=== PATIENT | male | born 1990 | race Caucasian/White ===

== ENCOUNTER 2022-10-05 11:15 | Emergency (ER) | payer SELFPAY ==
[2022-10-05 11:20] VITALS: BP 139/90; PULSE 80; RESP 18; TEMP 36.9; O2SAT 97; BMI 35.6
--- NOTE | 2022-10-05 11:27 | XR_ITS ---
The [address] [address] Patient Name: KENDALL LEWIS MRN: [id number] date: 1990 Sex: M Assigned Patient Location: ER Current Patient Location: ER Accession/Order Number: [id number] Exam Date: 10/05/2022 11:30 Report Date: 10/05/2022 11:59 At the request of: BRAEDEN FLORES Procedure: XR soft tissue neck EXAMINATION: XR soft tissue neck, [id number] HISTORY: possibly stuck chicken bone COMPARISON: Cervical spine x-ray 02/25/2016. FINDINGS: No radiopaque foreign body within the [id number]. Upper airway is clear. Epiglottis and retropharyngeal soft tissues are within normal limits. Small anterior limbus vertebra at C5-C6. XR/XR soft tissue neck IMPRESSION: No radiopaque foreign body within the [id number]. Electronically authenticated by: JAMILA VASQUEZ Date: 10/05/2022 11:59
--- NOTE | 2022-10-05 11:29 | PC.NURSE ---
Pt states no SOB or resp issues. States that he feels like he still has a small section of bone stuck able to swallow saliva with no issues.
--- NOTE | 2022-10-05 13:23 | ED.GENADUL1 ---
Documented by User: SALO Ni 10/05/22 13:27 HPI - General Adult General Chief complaint: Dental/Oral Stated complaint: DIFFICULTY SWALLOWING Time Seen by Provider: 10/05/22 13:03 Source: patient Mode of arrival: walk-in Limitations: no limitations History of Present Illness HPI narrative: patient is a 32-year-old male who presents to the emergency department for concern he may have a chicken bone stuck in his throat. He states he was eating fried chicken last night and had the sensation of irritation or that something is stuck. He is able to eat and drink today with no difficulty. He has been able to pass food and fluids without vomiting or difficulty swallowing. He states he just has an irritated sensation in his throat. No fevers or upper respiratory symptoms. No vomiting or diarrhea. No wheezing or difficulty breathing. Related Data Previous Rx's Medication Instructions Recorded sucralfate 1 gram tablet (Carafate) 1 g PO Q6H PRN abdominal pain #12 10/05/22 tabs Allergies Allergy/AdvReac Type Severity Reaction Status Date / Time No Known Drug Allergies Allergy Verified 10/05/22 11:24 Review of Systems ROS Constitutional Denies: fever or chills Ears, nose, mouth, and throat Reports: throat pain; Denies: neck pain Cardiovascular Denies: chest pain Respiratory Denies: shortness of breath or cough Gastrointestinal Denies: nausea or vomiting Musculoskeletal Denies: back pain or neck pain Integumentary/Breast Denies: rash Exam Narrative Exam Narrative: Gen.: Awake, alert, in no distress Head: Normocephalic, atraumatic ENT: Moist mucous membranes, airway widely open and patent with clear speech, uvula midline. patient tolerates secretions with no difficulty and able to swallow saliva at bedside Respiratory: No respiratory distress, lungs clear bilaterally; no wheezing or stridor Cardio: Regular rate and rhythm Extremities: Moves extremities equally Psych: Normal mood and affect Neuro: No focal neuro deficit Skin: Warm, dry, intact Constitutional Vital Signs, click to edit/add: Last Vital Signs Temp 98.4 F 10/05/22 11:20 Pulse 80 10/05/22 13:42 Resp 16 10/05/22 13:42 BP 120/90 10/05/22 13:42 Pulse Ox 99 10/05/22 13:42 O2 Del Method Room Air 10/05/22 13:42 Course Vital Signs Vital signs: Vital Signs Temperature 98.4 F 10/05/22 11:20 Pulse Rate 80 10/05/22 11:20 Respiratory Rate 18 10/05/22 11:20 Blood Pressure 139/90 10/05/22 11:20 Pulse Oximetry 97 10/05/22 11:20 Temperature 98.4 F 10/05/22 11:20 Pulse Rate 80 10/05/22 13:42 Respiratory Rate 16 10/05/22 13:42 Blood Pressure 120/90 10/05/22 13:42 Pulse Oximetry 99 10/05/22 13:42 Oxygen Delivery Method Room Air 10/05/22 13:42 Medical Decision Making MDM Narrative Medical decision making narrative: x-rays of the soft tissue of the neck show no evidence of radio-opaque foreign body. Discussed with the patient who is relieved and grateful for care. He is treated with a gastrointestinal cocktail for suspected esophagitis versus esophageal abrasion causing his symptoms. he is given Carafate for home, soft foods encouraged. His airway is widely open, patent in the emergency department with stable vital signs in no respiratory distress. Follow-up with PCP and return to the Emergency Room if symptoms change or worsen. Medical Records Medical records reviewed: Yes I reviewed the patient's medical records Imaging Data XR soft tissue neck: Attestation: I have reviewed the pertinent imaging results. Radiologist's impression: Procedure: XR soft tissue neck EXAMINATION: XR soft tissue neck, [id number] HISTORY: possibly stuck chicken bone COMPARISON: Cervical spine x-ray 02/25/2016. FINDINGS: No radiopaque foreign body within the [id number]. Upper airway is clear. Epiglottis and retropharyngeal soft tissues are within normal limits. Small anterior limbus vertebra at C5-C6. IMPRESSION: No radiopaque foreign body within the [id number]. Electronically authenticated by: JAMILA VASQUEZ Date: 10/05/2022 11:59 Discharge Plan Discharge Chief Complaint: Dental/Oral Clinical Impression: Dysphagia Patient Disposition: Home, Self-Care Time of Disposition Decision: 13:17 Condition: Good Prescriptions / Home Meds: New sucralfate [Carafate] 1 gram tablet 1 g PO Q6H PRN (Reason: abdominal pain) Qty: 12 0RF Instructions: Esophagitis (ED) Stand Alone Forms: Portal Instructions Referrals: KAITLIN WHEELER [Primary Care Provider] - 1 week Discharge Date/Time: 10/05/22 13:45 Documented by User: Agustin Aragon MD 10/05/22 19:22 HPI - General Adult General Chief complaint: Dental/Oral Stated complaint: DIFFICULTY SWALLOWING Time Seen by Provider: 10/05/22 13:03 Related Data Previous Rx's Medication Instructions Recorded sucralfate 1 gram tablet (Carafate) 1 g PO Q6H PRN abdominal pain #12 10/05/22 tabs Allergies Allergy/AdvReac Type Severity Reaction Status Date / Time No Known Drug Allergies Allergy Verified 10/05/22 11:24 Exam Constitutional Vital Signs, click to edit/add: Last Vital Signs Temp 98.4 F 10/05/22 11:20 Pulse 80 10/05/22 13:42 Resp 16 10/05/22 13:42 BP 120/90 10/05/22 13:42 Pulse Ox 99 10/05/22 13:42 O2 Del Method Room Air 10/05/22 13:42 Course Vital Signs Vital signs: Vital Signs Temperature 98.4 F 10/05/22 11:20 Pulse Rate 80 10/05/22 11:20 Respiratory Rate 18 10/05/22 11:20 Blood Pressure 139/90 10/05/22 11:20 Pulse Oximetry 97 10/05/22 11:20 Temperature 98.4 F 10/05/22 11:20 Pulse Rate 80 10/05/22 13:42 Respiratory Rate 16 10/05/22 13:42 Blood Pressure 120/90 10/05/22 13:42 Pulse Oximetry 99 10/05/22 13:42 Oxygen Delivery Method Room Air 10/05/22 13:42 Medical Decision Making MDM Narrative Medical decision making narrative: x-rays of the soft tissue of the neck show no evidence of radio-opaque foreign body. Discussed with the patient who is relieved and grateful for care. He is treated with a gastrointestinal cocktail for suspected esophagitis versus esophageal abrasion causing his symptoms. he is given Carafate for home, soft foods encouraged. His airway is widely open, patent in the emergency department with stable vital signs in no respiratory distress. Follow-up with PCP and return to the Emergency Room if symptoms change or worsen. I, Dr Aragon, have reviewed the above progress note and course of action in the ER; agree with the above. I have personally seen and evaluated this patient, gone over history and physical, and discussed disposition and treatment plan with the patient. Discharge Plan Discharge Chief Complaint: Dental/Oral Clinical Impression: Dysphagia Patient Disposition: Home, Self-Care Time of Disposition Decision: 13:17 Condition: Good Prescriptions / Home Meds: New sucralfate [Carafate] 1 gram tablet 1 g PO Q6H PRN (Reason: abdominal pain) Qty: 12 0RF Instructions: Esophagitis (ED) Stand Alone Forms: Portal Instructions Referrals: KAITLIN WHEELER [Primary Care Provider] - 1 week Discharge Date/Time: 10/05/22 13:45
[2022-10-05] MEDS: lidocaine HCL 15 ML, MAG HYDROX/ALUMINUM HYD/SIMETH 30 ML, HYOSCYAMINE SULFATE 0.25 MG PO (13:36)
[2022-10-05 13:42] VITALS: BP 120/90; PULSE 80; RESP 16; O2SAT 99
== END 2022-10-05 13:45 | disposition home or self-care (01) ==
PROVIDERS: Emergency Provider Emergency Medicine; PCP Family Medicine
DX: R13.10 Dysphagia, unspecified (principal)
CPT/HCPCS: 70360; 99283

== ENCOUNTER 2024-10-12 20:15 | Emergency (ER) | payer BC, SELFPAY ==
[2024-10-12 20:22] VITALS: BP 144/90; PULSE 95; TEMP 36.4; O2SAT 92; BMI 36.9
--- OUTSIDE RECORDS SUMMARY | 2024-10-12 20:23 | XMS_ITS | Clinical Summary ---
Author Organization [facility] Address [address], [address] [place] [address] Care Team Providers Care Charge Master Analyst Name Role Phone Marilynn Sahu Primary Care Provider [phone] Allergies No known active allergies Medications HYDROcodone-acet aminophen (NORCO) 7.5-325 MG per tablet Take 1 tablet by mouth every 8 hours as needed for Pain . 12 tablet 02/25/2016 Active Immunizations Immunization Administration Dates Next Due Td, unspecified formulation 02/25/2016 Social History Tobacco Use Types Packs/Day Years Used Date Smoking Tobacco: Never Sex and Gender Information Value Date Recorded Sex Assigned at Not on file Legal Sex Male 7:53 PM EST Gender Identity Not on file Sexual Orientation Not on file Last Filed Vital Signs Vital Sign Reading Time Taken Comments Blood Pressure 150/85 02/25/2016 10:01 PM EST Pulse 84 02/25/2016 10:01 PM EST Temperature 36.8 C (98.2 F) 02/25/2016 8:00 PM EST Respiratory Rate 20 02/25/2016 9:32 PM EST Oxygen Saturation 99% 02/25/2016 10:01 PM EST Inhaled Oxygen Concentration - - Weight 97.5 kg (215 lb) 02/25/2016 7:58 PM EST Height - - Body Mass Index - - Plan of Treatment Not on file Care Teams Charge Master Analyst Relationship Specialty Start Date End Date Marilynn Sahu PA [address] [place] [address] PCP - General 02/25/16
--- OUTSIDE RECORDS SUMMARY | 2024-10-12 20:23 | XMS_ITS | Clinical Summary ---
Author Organization [facility] Address [address] [place] [address] Care Team Providers Care Website Designer Name Role Phone Florencio Lala MD Primary Care Provider [phone] Mehnaz Brannon MD Unavailable [phone] Allergies No known active allergies Medications No known medications Active Problems No known active problems Family History Relation Name Status Comments Father Alive Mother Alive Sister Alive Social History Tobacco Use Types Packs/Day Years Used Date Smoking Tobacco: Never Smokeless Tobacco: Never Tobacco Cessation:Counseling Given: Not Answered Alcohol Use Standard Drinks/Week Comments Yes 8 (1 standard drink = 0.6 oz pure alcohol) Caffeine intake: 1-2 cups per day Sex and Gender Information Value Date Recorded Sex Assigned at Not on file Legal Sex Male 8:34 PM EDT Gender Identity Male 07/11/2022 2:16 PM EDT Sexual Orientation Not on file Last Filed Vital Signs Vital Sign Reading Time Taken Comments Blood Pressure 138/88 11/03/2023 11:01 AM EDT Pulse 71 11/03/2023 11:01 AM EDT Temperature 37.1 C (98.7 F) 11/03/2023 11:01 AM EDT Respiratory Rate - - Oxygen Saturation 97% 11/03/2023 11:01 AM EDT Inhaled Oxygen Concentration - - Weight 127 kg (281 lb) 11/03/2023 11:01 AM EDT Height 188 cm (6' 2 ) 11/03/2023 11:01 AM EDT Body Mass Index 36.08 11/03/2023 11:01 AM EDT Plan of Treatment Health Maintenance Due Date Last Done Comments Influenza Vaccine (#1) 2024 12/11/2020 Insurance [facility] Care Teams Website Designer Relationship Specialty Start Date End Date Florencio Lala MD [address] [place] [address] PCP - General Family Medicine 07/12/22 Mehnaz Brannon MD [address] [place] [address] PCP - [facility] 05/05/23
--- OUTSIDE RECORDS SUMMARY | 2024-10-12 20:23 | XMS_ITS | Clinical Summary ---
Author Organization [facility] Address [address] [place] [address] Care Team Providers Care Rug Inspector Name Role Phone Unavailable Primary Care Provider Unavailabl e Allergies No known active allergies Medications No known medications Active Problems Problem Noted Date Diagnosed Date Superficial keratitis of left eye 03/18/2015 Vitreous floaters of both eyes 03/11/2015 Bacterial conjunctivitis of left eye 03/11/2015 S/P LASIK (laser assisted in situ keratomileusis) of both eyes 03/11/2015 Family History Medical History Relation Comments No Ocular Disease No Family History Social History Tobacco Use Types Packs/Day Years Used Date Smoking Tobacco: Never Smokeless Tobacco: Never Sex and Gender Information Value Date Recorded Sex Assigned at Not on file Legal Sex Male 9:50 AM EDT Gender Identity Not on file Sexual Orientation Not on file Plan of Treatment Health Maintenance Due Date Last Done Comments Anxiety Screening 05/08/2007 Depression Screening 05/08/2007 HIV Screening 05/08/2007 Hepatitis C Screening 05/08/2007 DTaP,Tdap,Td Vaccine (1 - Tdap) 2008 Hepatitis B Vaccine (1 of 3 - 19+ 3-dose series) 05/07 Lipid Screening 2024 Influenza Vaccine (#1) 2024
--- OUTSIDE RECORDS SUMMARY | 2024-10-12 20:23 | XMS_ITS | Clinical Summary ---
Author Organization [facility] Address [address] [id number] Phone Care Team Providers Care Dyer And Washer Name Role Phone Unavailable Primary Care Provider Unavailabl e Social History Tobacco Use Types Packs/Day Years Used Date Smoking Tobacco: Never Assessed Sex and Gender Information Value Date Recorded Sex Assigned at Not on file Legal Sex Male 11:52 AM EST Gender Identity Not on file Sexual Orientation Not on file Plan of Treatment Not on file
--- NOTE | 2024-10-12 20:28 | PC.NURSE ---
right shoulder pain, no redness, bruising or swelling, ROM to right shoulder is wnl.
[2024-10-12 20:37] VITALS: O2SAT 97
--- NOTE | 2024-10-12 21:10 | ED_ITS ---
HPI HPI - General Adult General Chief complaint: Extremity Problem, Nontraumatic Stated complaint: Upper Pain Time Seen by Provider: 10/12/24 20:18 Source: patient Mode of arrival: walk-in Limitations: no limitations History of Present Illness HPI narrative: Patient presents with right shoulder pain. States it began 2 weeks ago he denies any known injury. He does state that he was working out and also working prior to this beginning he denies any trauma, headache, neck pain, chest pain, abdominal pain, shortness of breath. Has been taking Aleve with some relief. But not resolution symptoms mild to moderate severity worse with touch or motion Onset (ago): week(s) (2) Location: Reports upper extremity (rt shoulder and shoulder blade) Radiation: Reports non-radiation Severity: moderate Relieving factors: Reports medication Exacerbating factors: Reports movement Treatments prior to arrival: Reports NSAID Related Data Previous Rx's ?Medication ?Instructions ?Recorded ibuprofen 800 mg tablet 800 mg PO Q8H PRN pain #20 t abs 10/12/24 Allergies Allergy/AdvReac Type Severity Reaction Status Date / Time No Known Drug Allergies Allergy Verified 10/05/22 11:24 Review of Systems ROS Status of ROS 10 or more systems reviewed and unremark able except as noted in history and below Constitutional Denies: fever or chills Eyes Denies: change in vision or blurry vision Ears, nose, mouth, and throat Denies: neck pain Cardiovascular Denies: chest pain Respiratory Denies: shortness of breath or cough Gastrointestinal Denies: abdominal pain, nausea or vomiting Genitourinary Denies: blood in urine Neurological Denies: headache, weakness in extremities or lack of coordination Allergic/Immunologic Denies: hives PFSH PFS Social History Little interest or pleasure in doing things: not at all Feeling down, depressed, or hopeless: not at all Exam Constitutional Vital Signs, click to edit/add: Last Vital Signs Temp 97.6 F 10/12/24 20:22 Pulse 95 H 10/12/24 20:22 Resp 18 10/12/24 20:37 BP 144/90 H 10/12/24 20:22 Pulse Ox 97 10/12/24 20:37 O2 Del Method Room Air 10/12/24 20:22 Documenting provider has reviewed patient's vital signs: yes Common normals: no apparent distress and oriented x3 Exam limitations: no altered mental status General appearance: cooperative and comfortable Eye Common normals: PERRL and EOMs intact bilaterally Neck & C-Spine Common normals: full ROM and supple Cervical spine: cervical ROM normal; no pain with cervical ROM and no cervical spine tenderness Chest Common normals: inspection of chest normal and palpation of chest normal Respiratory Common normals: normal respiratory effort and clear to auscultation bilaterally Effort & inspection: able to speak in complete sentences and symmetric chest movement Cardio Common normals: regular rate, regular rhythm, S1 normal heart sound and S2 normal heart sound GI Common normals: Normal to inspection, nondistended, normoactive bowel sounds present Common normals: no CVA tenderness Extremity Common normals: normal to inspection; limited ROM Right upper extremity: shoulder joint (Decreased range of motion including decreased flexion, decreased elevation ) Right shoulder joint exam: no findings for ROM; no findings for clavicle, no findings for bony scapula, no findings for upper arm, no findings for elbow joint, no findings for lower arm, no findings for wrist and no findings for hand and digits Other: Tenderness overlying anterior shoulder joint. Negative tenderness to scapula. Neuro Common normals: oriented x3, moves all extremities, no focal motor deficits and no sensory deficits noted Course Vital Signs Vital signs: Vital Signs Temperature 97.6 F 10/12/24 20:22 Pulse Rate 95 H 10/12/24 20:22 Respiratory Rate 20 10/12/24 20:22 Blood Pressure 144/90 H 10/12/24 20:22 Pulse Oximetry 92 L 10/12/24 20:22 Oxygen Delivery Method Room Air 10/12/24 20:22 Temperature 97.6 F 10/12/24 20:22 Pulse Rate 95 H 10/12/24 20:22 Respiratory Rate 18 10/12/24 20:37 Blood Pressure 144/90 H 10/12/24 20:22 Pulse Oximetry 97 10/12/24 20:37 Oxygen Delivery Method Room Air 10/12/24 20:22 Medical Decision Making MDM Narrative Medical decision making narrative: Patient presents with 2-week history of pain decreased range of motion. Rule out x-ray right shoulder chest as he notes that he has pain in the shoulder blade. He has tried Aleve and Biofreeze with some improvement but not relief pain worse with motion elevation and flexion. Denies any trauma. Reviewed x- ray no fracture evident/see final radiology report. We discussed with patient final radiology report reviewed available in the morning. He is to follow-up with orthopedics with ibuprofen [address] of his Aleve Tylenol as directed on packaging for additional pain relief cold packs in place of warm compresses. Will add work note until patient can get in with orthopedics he is to call Monday. Discussed plan of care with patient is agreeable to plan of care. Differential Diagnosis Differential Diagnosis: Sure, sprain, rotator cuff, labrum Discharge Plan Discharge Stand Alone Forms: Work/School Release Chief Complaint: Extremity Problem, Nontraumatic Clinical Impression: Shoulder sprain Qualifiers: Encounter type: initial encounter Shoulder sprain type: unspecified sprain Laterality: right Qualified Code(s): S43.401A - Unspecified sprain of right shoulder joint, initial encounter Acute shoulder pain Qualifiers: Laterality: right Qualified Code(s): M25.511 - Pain in right shoulder Patient Disposition: Home, Self-Care Time of Disposition Decision: 21:49 Condition: Good Mode of Transportation: Private Vehicle Prescriptions / Home Meds: New ibuprofen 800 mg tablet 800 mg PO Q8H PRN (Reason: pain) Qty: 20 0RF Print Language: Kazakh Instructions: How to Use a Sling (ED), Shoulder Sprain (ED) Additional Instructions: Follow-up with orthopedics. Return to if any symptoms worsen or new symptoms develop. May add Tylenol as directed on packaging. Use ibuprofen as prescribed. Add cold packs 15 minutes on [address] equipment while wearing sling. Referrals: KATHY VICK [Physician, Orthopedics] - As soon as possible KAITLIN WHEELER [Primary Care Provider, Family Practice] - 1 week
[2024-10-12] MEDS: IBUPROFEN 400 MG TABLET 800 MG PO (22:13)
== END 2024-10-12 22:19 | disposition home or self-care (01) ==
PROVIDERS: Emergency Provider Student in an Organized Health Care Education/Training Program; PCP Family Medicine
DX: S43.401A Unspecified sprain of right shoulder joint, initial encounter (principal); M25.511 Pain in right shoulder
CPT/HCPCS: 71046; 73030; 99284